=== PATIENT | male | born 2000 | race Caucasian/White ===

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

== ENCOUNTER 2023-04-10 11:04 | Emergency (ER) | payer OTHER ==
[2023-04-10 12:55] VITALS: BP 125/78; PULSE 94
== END 2023-04-10 12:55 | disposition home or self-care (01) ==
LOC: JD.ED 11:04
DX: S67.192A Crushing injury of right middle finger, initial encounter (principal); S67.190A Crushing injury of right index finger, initial encounter; S62.632B Displaced fracture of distal phalanx of right middle finger, initial encounter for open fracture; S62.660B Nondisplaced fracture of distal phalanx of right index finger, initial encounter for open fracture; W23.0XXA Caught, crushed, jammed, or pinched between moving objects, initial encounter; Y92.89 Other specified places as the place of occurrence of the external cause; Y99.0 Civilian activity done for income or pay
CPT/HCPCS: 73130-26-RT; 73130-RT; 99283